=== PATIENT | female | born 1940 | race Caucasian/White ===

== ENCOUNTER 2016-10-18 14:29 | Inpatient (IN) | payer MEDICARE, BC ==
[~2016-10-18] VITALS: Ht 152.4 cm; Wt 64.5 kg
[2016-10-18 16:09] LABS: BASOPHILS 0.2 % (0.0-2.0); EOSINOPHILS 5.7 % (0-7); HEMATOCRIT 38.7 % (36.0-48.0); HEMOGLOBIN 13.2 g/dL (12-16); IMMATURE GRANULOCYTES 0.5 % (0-5); LYMPHOCYTES 6.1 % (15-50); MCH 30.6 pg (26.0-34.0); MCHC 34.1 g/dL (31.0-37.0); MCV 89.8 fL (80.0-100.0); MEAN PLATELET VOLUME 10.9 fL (7.4-10.4); MONOCYTES 5.3 % (2-11); NEUTROPHILS 82.2 % (40-80); PLATELET COUNT 337 10x3/uL (130-400); RBC 4.31 10x6/uL (4.00-5.40)
[2016-10-18 16:14] LABS: APTT 24.2 SECONDS (22.8-39.4); INR 0.98 (0.85-1.17); PROTIME 12.8 SECONDS (11.6-15.0)
[2016-10-18 16:24] LABS: ALBUMIN 3.2 g/dL (3.4-5.0); ANION GAP 16.5 mmol/L (8-16); BILIRUBIN - TOTAL 0.57 mg/dL (0.2-1.3); CALCIUM 8.9 mg/dL (8.5-10.1); CARBON DIOXIDE 23.6 mmol/L (21.0-32.0); CREATININE - SERUM 2.8 mg/dL (0.6-1.3); POTASSIUM - SERUM 4.1 mmol/L (3.5-5.1); PROTEIN - SERUM 6.4 g/dL (6.4-8.2)
[2016-10-18 18:53] LABS: APPEARANCE CLEAR (CLEAR); SPECIFIC GRAVITY 1.015 (1.005-1.020)
[2016-10-18 18:54] LABS: COLOR ORANGE (YELLOW)
[2016-10-18 19:09] LABS: WHITE CELLS - URINE OCC /hpf (0-5)
[2016-10-18 20:12] LABS: MAGNESIUM - SERUM 2.4 mg/dL (1.8-2.4)
--- NOTE | 2016-10-18 23:00 | NUR ---
PATIENT RECEIVED TO ROOM FROM ER VIA STRETCHER WITH DAUGHTER AND HOSPITAL STAFF. PATIENT IS AWAKE AND ORIENTED BUT VERY LETHARGIC. RR EVEN AND UNLABORED. 0 S/S OF DISTRESS. STATES PAIN IS A 5/10 DUE TO CHRONIC PAIN IN BACK, HIPS, AND KNEES. IV TO LEFT HAND PATENT WITH NO REDNESS OR SWELLING. INITIATED NS @ 100ML/HR PER ORDER. PUT TELEMETRY ON PATIENT. ORIENTED PATIENT TO ROOM AND CALL LIGHT. NO OTHER NEEDS AT THIS TIME.
[2016-10-18 23:01] VITALS: BP 144/64; BMI 28.1
[2016-10-19] VITALS: BP 144/64
[2016-10-19] MEDS ORDERED: CYCLOBENZAPRINE10 MG PO (00:57)
[2016-10-19] MEDS ORDERED: PHENERGAN25 M1 PO (01:00)
[2016-10-19] MEDS ORDERED: TRIAMTERENE-HCT1 TA1 PO (01:03)
[2016-10-19] MEDS ORDERED: NITROSTAT0.6 MG SL (01:05)
[2016-10-19] MEDS ORDERED: PHENAZOPYRIDIN200 MG PO (01:06)
[2016-10-19] MEDS ORDERED: ULTRAM50 MG PO (01:06)
[2016-10-19] MEDS ORDERED: NORVASC10 MG PO (01:07)
[2016-10-19] MEDS ORDERED: LONITEN2.5 MG PO (01:07)
[2016-10-19] MEDS ORDERED: METOPROLOL TAR100 M1 PO (01:07)
[2016-10-19] MEDS ORDERED: FENOFIBRATE160 MG PO (01:08)
[2016-10-19] MEDS ORDERED: NITRO-DUR0.4 MG TRANSDERM (01:08)
[2016-10-19] MEDS ORDERED: BAYER CHEWABLE81 MG PO (01:09)
[2016-10-19] MEDS ORDERED: MAXZIDE 75/501 TAB PO (01:10)
[2016-10-19 04:00] VITALS: BP 117/60
--- NOTE | 2016-10-19 04:00 | NUR ---
ASSISTED PATIENT TO BSC AND BACK TO BED. PATIENT STILL VERY WEAK BUT STATES SHE "MIGHT FEEL A LITTLE BIT BETTER THAN EARLIER." NO OTHER NEEDS AT THIS TIME.
[2016-10-19 06:45] LABS: CALCIUM 8.7 mg/dL (8.5-10.1); CARBON DIOXIDE 21.2 mmol/L (21.0-32.0); CREATININE - SERUM 2.3 mg/dL (0.6-1.3); POTASSIUM - SERUM 4.2 mmol/L (3.5-5.1)
[2016-10-19 07:58] VITALS: BP 146/55
--- NOTE | 2016-10-19 08:00 | NUR ---
PT ASSESSMENT COMPLETE PER FLOWSHEET AWAKE AND ALERT ORIENTED X 3 LUNGS CLAER WITH NOTED DIMINISHED BASE LEFT LL HAS RASH TO BODY FROM SYSTEMIC REACTION TO CIPRO. FAMILY AT BEDSIDE.
[2016-10-19 09:38] LABS: HEMOGLOBIN 12.4 g/dL (12-16); MCH 30.6 pg (26.0-34.0); MCHC 33.5 g/dL (31.0-37.0); MCV 91.4 fL (80.0-100.0); MEAN PLATELET VOLUME 10.7 fL (7.4-10.4); PLATELET COUNT 308 10x3/uL (130-400); RBC 4.05 10x6/uL (4.00-5.40); RDW 13.3 % (11.5-14.5)
[2016-10-19 09:46] LABS: ANION GAP 21.6 mmol/L (8-16); BILIRUBIN - TOTAL 0.47 mg/dL (0.2-1.3); CALCIUM 8.6 mg/dL (8.5-10.1); CARBON DIOXIDE 18.6 mmol/L (21.0-32.0); CREATININE - SERUM 2.4 mg/dL (0.6-1.3); POTASSIUM - SERUM 4.2 mmol/L (3.5-5.1); PROTEIN - SERUM 6.1 g/dL (6.4-8.2)
[2016-10-19 10:11] LABS: EOSINOPHILS 4 % (0-7); LYMPHOCYTES 3 % (15-50); MONOCYTES 6 % (2-11); NEUTROPHILS 82 % (40-80); PLATELET ESTIMATE NORMAL; ROULEAUX OCC
[2016-10-19 11:18] LABS: HEMOGLOBIN A1C 5.8 % (4.8-6.0)
[2016-10-19 11:39] VITALS: BP 150/57
[2016-10-19 12:56] VITALS: Ht 152.4 cm; Wt 64.5 kg
--- NOTE | 2016-10-19 13:00 | NUR ---
PT REQUESTED AND RECIEVED BENADRYL FOR ITCHING PT RESTING QUIETLY AT THIS TIME FAMILY AT BEDSIDE.
--- NOTE | 2016-10-19 13:41 | NUR ---
Patient Name: SANDRA MORIN Admission Status: ER Accout number: [id number] Admission Date: 10-18-2016 : 1940 Admission Diagnosis: Attending: CURLY Current LOS: 1 Anticipated DC Date: Planned Disposition: Primary Insurance: MEDICARE A & B Discharge Planning Comments: CM MET WITH PATIENT REGARDING DISCHARGE NEEDS AND PLANS. PATIENT STATED SHE LIVES WITH HER SPOUSE BUT HE IS WITH HIS SON RIGHT NOW. PATIENT HAS A RAMP TO ENTER HOME AND NO STAIRS INSIDE. PATIENT STATED SHE IS INDEPENDENT WITH HER CARE AND HAS A WALKER, WHEELCHAIR, AND SHOWER CHAIR AT HOME IF NEEDED. PATIENTS PCP IS DR. HICKMAN IN [facility] AND SHE USES [facility]. PATIENT HAS NEVER HAD HOME HEALTH AND DOES NOT THINK SHE WILL NEED IT. CM WILL CONTINUE TO FOLLOW PATIENT WITH D/C NEEDS AND PLANS. PCP DR. HICKMAN ([facility]) [facility]- [phone] JARETH (SON) [phone] MAX (DAUGHTER) [phone] House Wrecker: Fartun Fierro Is the patient Alert and Oriented? Yes 0 * How many steps to enter\exit or inside your home? RAMP 0 * PCP DR. HICKMAN ([facility]) 0 * Pharmacy [facility] 0 * Preadmission Environment Home with Family 0 * ADLs Independent 0 * Equipment Shower Chair Walker Wheelchair 0 * List name and contact numbers for known caregivers / representatives who currently or will assist patient after discharge: JARETH (SON) [phone] MAX (DAUGHTER) [phone] 0 * Community resources currently utilized None 0 * Additional services required to return to the preadmission environment? Yes 0 * Can the patient safely return to the preadmission environment? Yes 0 * Has this patient been hospitalized within the prior 30 days at any hospital? No 0 Grand Total: 0
--- NOTE | 2016-10-19 15:00 | NUR ---
DENIES NEEDS AT THIS TIME. RESPIRATIONS EVEN AND NON LABORED. CALL LIGHT IN REACH, WILL CONTINUE WITH PLAN OF CARE.
[2016-10-19 15:45] VITALS: BP 142/61
--- NOTE | 2016-10-19 17:30 | NUR ---
PT EATING DINNER MEAL STATES PAIN LEVEL 6 WILL TREAT PER ORDER WITH DEMEROL AND EVALUATE EFFECTIVNESS
--- NOTE | 2016-10-19 19:37 | NUR ---
INTRODUCED AND ASSESSED AT THIS TIME
[2016-10-19 20:00] VITALS: BP 106/59
--- NOTE | 2016-10-19 22:31 | NUR ---
ALL MEDS TAKEN AT THIS TIME. HAS BEEN UP TO THE BATHROOM TO VOID. FAMILY REMAINS AT THE BEDSIDE. TOOK BENADRYL FOR ITCHING RASH WHICH SHE HAS ALL OVER. NO PROBLEM TAKING ORAL MEDS. HAS SCD'S IN PLACE AND RUNNING AT THIS TIME.
[2016-10-20] VITALS: BP 103/50
[2016-10-20 04:00] VITALS: BP 112/59
[2016-10-20 04:58] LABS: BASOPHILS 0.1 % (0.0-2.0); EOSINOPHILS 7.1 % (0-7); HEMATOCRIT 30.6 % (36.0-48.0); HEMOGLOBIN 10.3 g/dL (12-16); IMMATURE GRANULOCYTES 0.5 % (0-5); LYMPHOCYTES 9.7 % (15-50); MCH 30.3 pg (26.0-34.0); MCHC 33.7 g/dL (31.0-37.0); MEAN PLATELET VOLUME 9.6 fL (7.4-10.4); MONOCYTES 6.8 % (2-11); NEUTROPHILS 75.8 % (40-80); PLATELET COUNT 279 10x3/uL (130-400); RDW 13.3 % (11.5-14.5); WBC 15.7 10x3/uL (4.8-10.8)
[2016-10-20 05:21] LABS: ANION GAP 14.2 mmol/L (8-16); CALCIUM 8.2 mg/dL (8.5-10.1); CARBON DIOXIDE 22.4 mmol/L (21.0-32.0); MAGNESIUM - SERUM 1.8 mg/dL (1.8-2.4); PHOSPHOROUS 2.8 mg/dL (2.5-4.9); POTASSIUM - SERUM 3.6 mmol/L (3.5-5.1)
[2016-10-20 05:22] LABS: CREATININE - SERUM 1.5 mg/dL (0.6-1.3)
--- NOTE | 2016-10-20 07:55 | NUR ---
Patient is awake and alert and she is pleasant. Patient says she is not hungry, she is oriented x3, daughter in her room, c/o feeling weak. denies needs at this time.
[2016-10-20 08:13] VITALS: BP 110/53
[2016-10-20 12:43] VITALS: BP 117/68
--- NOTE | 2016-10-20 14:40 | NUR ---
iv ACCESS-22 GAUGE IN LEFT FOREARM. LINDA ROBERTSON RN
[2016-10-20 15:50] VITALS: BP 120/101
[2016-10-20 21:03] VITALS: BP 144/53
--- NOTE | 2016-10-20 23:20 | NUR ---
PT WAS ASSESSED AT THE BEGINNING OF THE SHIFT. SHE IS ALERT AND ORIENTED, ABLE TO VERBALIZE NEEDS. SHE CONTINURES TO HAVE A RASH ALL OVER HER BODY BUT IS LOOKING LESS RED AND ANGRY. BENADRYL WAS GIVEN FOR THIS AND TO HELP HER REST. SHE IS ABLE TO TURN AND MOVE IN THE BED BUT NEEDS A LOT OF ASSIST UP TO THE BATHROOM DURING THE NIGHT. HER DAUGHTER IS IN THE ROOM WITH HER AND IS HELPING QUITE A BIT. THE BED IS LOW, RAILS UP X'S 2 WITH THE CALL LIGHT AT HAND.
[2016-10-21 01:17] VITALS: BP 109/52
[2016-10-21 04:00] VITALS: BP 139/49
[2016-10-21 05:23] LABS: BASOPHILS 0.2 % (0.0-2.0); EOSINOPHILS 9.2 % (0-7); HEMATOCRIT 29.1 % (36.0-48.0); HEMOGLOBIN 9.8 g/dL (12-16); IMMATURE GRANULOCYTES 1.2 % (0-5); LYMPHOCYTES 14.6 % (15-50); MCH 30.2 pg (26.0-34.0); MCHC 33.7 g/dL (31.0-37.0); MCV 89.8 fL (80.0-100.0); MEAN PLATELET VOLUME 9.4 fL (7.4-10.4); MONOCYTES 7.2 % (2-11); NEUTROPHILS 67.6 % (40-80); PLATELET COUNT 258 10x3/uL (130-400); RBC 3.24 10x6/uL (4.00-5.40); RDW 13.4 % (11.5-14.5); WBC 12.7 10x3/uL (4.8-10.8)
[2016-10-21 05:52] LABS: ALBUMIN 2.6 g/dL (3.4-5.0); ANION GAP 14.3 mmol/L (8-16); BILIRUBIN - TOTAL 0.43 mg/dL (0.2-1.3); CALCIUM 8.3 mg/dL (8.5-10.1); CARBON DIOXIDE 22.7 mmol/L (21.0-32.0); CREATININE - SERUM 1.2 mg/dL (0.6-1.3); PROTEIN - SERUM 5.8 g/dL (6.4-8.2)
--- NOTE | 2016-10-21 07:00 | NUR ---
PT REC'D FROM TRISTIN BECK. RESTING IN BED WITH DAUGHTER IN ROOM. AAOX4. NO COMPLAINTS OF PAIN. REGULAR HEART RATE AND RHYTHM. LUNG SOUNDS CLEAR AND EQUAL BILAT. BOWEL SOUNDS ACTIVE X4 QUADRANTS. RASH THROUGHOUT BODY. PT STATES THAT IT IS GETTING BETTER. NO COMPLAINTS OF ITCHING. BED LOW, CALL LIGHT IN REACH, DENIES NEEDS, CPOC.
--- NOTE | 2016-10-21 08:03 | NUR ---
PATIENT ALERT IN HIGH SCHULER POSITION EATING BREAKFAST. TOLERATING WELL. SIDE RAILS UP X2. BED IN LOW POSITION. CALL LIGHT IN REACH.
[2016-10-21 08:24] VITALS: BP 149/61
--- NOTE | 2016-10-21 10:30 | NUR ---
MORNING MEDS PASSED AT THIS TIME. PT RESTING IN BED WITH SON IN ROOM. BATH AND LINEN CHANGED PROVIDED BY OFELIA PATEL.
--- NOTE | 2016-10-21 12:00 | NUR ---
UP WALKING WITH PHYSICAL THERAPY. AMBULATED WITH MINIMAL ASSISTANCE APPROXIMATELY 150FEET.
[2016-10-21 12:42] VITALS: BP 124/46
--- NOTE | 2016-10-21 14:10 | NUR ---
PRN DEMEROL ADMINISTERED PER PT COMPLAINTS OF 8/10 BACK PAIN. WILL MONITOR AND REASSESS.
--- NOTE | 2016-10-21 15:20 | NUR ---
PT RESTING IN BED WITH VISITORS IN ROOM. STATES PAIN IS GETTING BETTER. 02/10. SALINE LOCKED IV. BED LOW, CALL LIGHT IN REACH, DENIES NEEDS, CPOC.
[2016-10-21 18:39] VITALS: BP 115/58
[2016-10-21 20:49] VITALS: BP 141/59
--- NOTE | 2016-10-21 23:12 | NUR ---
ASSESSED AT THE BEGINNING OF THE SHIFT. DAUGHTER HAS REMAINED IN THE ROOM EVERY NIGHT. PT IS ALERT AND ORIENTED, ABLE TO VERBALIZE NEEDS. PT STATES SHE IS GETTING A LITTLE STRONGER WHICH WAS NOTED ON ASSIST TO THE BATHROOM. SHE REQUESTS VERY LITTLE AND HER DAUGHTER HELPS HER TO THE BATHROOM MOST OF THE TIME. THE BED IS LOW, RAILS UP X'S 2 WITH THE CALL LIGHT AT HAND.
[2016-10-22] VITALS: BP 125/61
[2016-10-22 04:00] VITALS: BP 111/48
[2016-10-22 05:43] LABS: BASOPHILS 0.2 % (0.0-2.0); EOSINOPHILS 0.2 % (0-7); HEMATOCRIT 27.1 % (36.0-48.0); HEMOGLOBIN 9.1 g/dL (12-16); IMMATURE GRANULOCYTES 2.3 % (0-5); LYMPHOCYTES 11.1 % (15-50); MCH 30.2 pg (26.0-34.0); MCHC 33.6 g/dL (31.0-37.0); MEAN PLATELET VOLUME 9.5 fL (7.4-10.4); MONOCYTES 5.4 % (2-11); NEUTROPHILS 80.8 % (40-80); PLATELET COUNT 272 10x3/uL (130-400); RBC 3.01 10x6/uL (4.00-5.40); RDW 13.5 % (11.5-14.5); WBC 12.3 10x3/uL (4.8-10.8)
[2016-10-22 05:59] LABS: ALBUMIN 2.8 g/dL (3.4-5.0); ANION GAP 13.6 mmol/L (8-16); BILIRUBIN - TOTAL 0.42 mg/dL (0.2-1.3); CALCIUM 8.5 mg/dL (8.5-10.1); CARBON DIOXIDE 24.1 mmol/L (21.0-32.0); CREATININE - SERUM 1.3 mg/dL (0.6-1.3)
[2016-10-22 06:00] LABS: POTASSIUM - SERUM 3.7 mmol/L (3.5-5.1)
--- NOTE | 2016-10-22 07:00 | NUR ---
PT REC'D FROM TRISTIN BECK. RESTING IN BED WITH DAUGHTER IN ROOM. VERY PLEASENT THIS. AAOX4. NO COMPLAINTS OF PAIN. BED LOW, CALL LIGHT IN REACH, DENIES NEEDS, CPOC.
[2016-10-22 08:07] VITALS: BP 135/60
--- NOTE | 2016-10-22 09:21 | NUR ---
PT RESTING IN BED VISITING WITH FAMILY, PT MEDS GIVEN PER NOV, NO CURRENT COMPLAINTS, WHEAT GROWER GETTING PT IN SHOWER, IV IN LEFT WRIST LEAKING, TAKEN IV OUT, PT ASSESSMENT COMPLETE, CALL LIGHT IN REACH, BED LOWEST POSITION, WILL CONTINUE PLAN OF CARE
--- NOTE | 2016-10-22 09:40 | NUR ---
PATIENT UP TO SHOWER WITH ASSIST FROM NICHELLE, NURSE AID. FAMILY PRESENT.
--- NOTE | 2016-10-22 10:15 | NUR ---
PT UP AMBULATING AROUND NURSES STATION WITH PHYSICAL THERAPY. UPDATED BY CECILIO PHYSICAL THERAPIST, THAT PT DID WELL WITH MINIMAL ASSISTANCE AND THAT HE FEELS COMFORTABLE CLEARING HER.
--- NOTE | 2016-10-22 11:24 | NUR ---
PT RESTING IN BED SITTING WITH FAMILY, NO COMPLAINTS NOTED, CALL LIGHT IN REACH, BED LOWEST POSITION, WILL CONTINUE PLAN OF CARE
[2016-10-22 12:03] VITALS: BP 140/60
[2016-10-22 16:07] VITALS: BP 139/63
--- NOTE | 2016-10-22 16:50 | NUR ---
PT RESTING IN BED VISITING WITH FAMILY, MED GIVEN PER MAR, BED LOWEST POSITION, CALL LIGHT IN REACH, NO COMPLAINTS, ELSIE CONTINUE PLAN OF CARE
--- NOTE | 2016-10-22 18:31 | NUR ---
PT RESTING IN BED WITH DAUGHTER IN ROOM. NO COMPLAINTS OF PAIN. BED LOW, CALL LIGHT IN REACH, DENIES NEEDS, CPOC.
--- NOTE | 2016-10-22 20:00 | NUR ---
ASSESSMENT PER FLOWSHEET. TELM. SHOWS ST WITH HR 102. AWAKE ALERT ORIENTED X3. FAMILY MEMBER AT BEDSIDE.
--- NOTE | 2016-10-22 21:00 | NUR ---
MEDS GIVEN PER MAR. DENIES NEEDS.
[2016-10-22 21:43] VITALS: BP 109/58
--- NOTE | 2016-10-23 00:28 | NUR ---
RESTING QUIETLY RESPIRATIONS WITH EASE AND UNLABORED.
[2016-10-23 05:00] VITALS: BP 140/71
[2016-10-23 05:38] LABS: BASOPHILS 0.7 % (0.0-2.0); EOSINOPHILS 8.9 % (0-7); HEMATOCRIT 29.7 % (36.0-48.0); HEMOGLOBIN 9.9 g/dL (12-16); IMMATURE GRANULOCYTES 2.1 % (0-5); LYMPHOCYTES 19.1 % (15-50); MCH 30.3 pg (26.0-34.0); MCHC 33.3 g/dL (31.0-37.0); MCV 90.8 fL (80.0-100.0); MEAN PLATELET VOLUME 9.2 fL (7.4-10.4); MONOCYTES 8.6 % (2-11); NEUTROPHILS 60.6 % (40-80); PLATELET COUNT 292 10x3/uL (130-400); RBC 3.27 10x6/uL (4.00-5.40); RDW 13.7 % (11.5-14.5); WBC 12.8 10x3/uL (4.8-10.8)
[2016-10-23 06:04] LABS: % SATURATION 27 % (15-55); IRON 85 ug/dl (35-150); TOTAL IRON BIND CAPACITY 308 ug/dl (260-445); UNSAT IRON BIND CAPACITY 223 ug/dl (150-375)
[2016-10-23 06:16] LABS: ALBUMIN 2.9 g/dL (3.4-5.0); ANION GAP 14.9 mmol/L (8-16); BILIRUBIN - TOTAL 0.45 mg/dL (0.2-1.3); CALCIUM 8.4 mg/dL (8.5-10.1); CARBON DIOXIDE 26.7 mmol/L (21.0-32.0); CREATININE - SERUM 1.2 mg/dL (0.6-1.3); POTASSIUM - SERUM 3.6 mmol/L (3.5-5.1); PROTEIN - SERUM 5.9 g/dL (6.4-8.2)
--- NOTE | 2016-10-23 06:44 | NUR ---
PATIENT UP WALKING TO BR VOIDS. NOW SITTING ON SIDE OF BED. TELM. PHONES SF=[id number]. INSTRUCTED PATIENT TO LAY DOWN FOR A WHILE PT DENIES ANY CHEST PAIN OR SHORTNESS OF BREATH.
--- NOTE | 2016-10-23 06:48 | NUR ---
HEART RATE SLOWING DOWN NOW RATE 141 PER FITTER WELDER.
[2016-10-23 08:34] VITALS: BP 150/82
--- NOTE | 2016-10-23 08:42 | NUR ---
MONITOR CALLED WITH RATE OF 155 UNCAF. VS 150/82. NO COMPLAINTS VOICED. DR HUITRON NOTIFIED. CARDIOLOGY CONSULTED. WILL MOVE TO PCU AFTER IV RESITED AND CARDIZEM DRIP TO BE STARTED. REPORT CALLED TO MEGAN CROW
--- NOTE | 2016-10-23 08:48 | NUR ---
IV ACCESS-20 GAUGE INSERTED IN LEFT HAND X 1 ATTEMPT. LINDA ROBERTSON RN
--- NOTE | 2016-10-23 09:00 | NUR ---
RECEIVED PT VIA BED FROM 2203 TO ROOM 2118 IN UCAF RATE SUSTAINED AT 155 PT IS AAOX4 DENIES ANY SOB B/P 152/
--- NOTE | 2016-10-23 09:06 | NUR ---
CARDIZEM GTT STARTED AT 5 ML/HR PER ORDER TO LT HAND PT TOLERATED WELL
[2016-10-23 11:10] VITALS: BP 152/80
--- NOTE | 2016-10-23 14:08 | NUR ---
Patient Name: SANDRA MORIN Encounter No: [id number] : 1940 Primary Insurance: MEDICARE A & B Anticipated DC Date: 10-20-2016 Planned Disposition: Home WITH HOME HEALTH External Planned Provider: [facility] DCP follow-up note: CM RECEIVED REQUEST TO SPEAK TO PT AND DAUGHTER IN ROOM. PT REPORTS PLAN TO RETURN HOME AND HAS DECIDED THAT SHE WOULD LIKE HOME HEALTH FOR HOME FOLLOW UP AFTER DISCHARGE. PT SIGNED CHOICE FOR [facility]. PCP: DR. HICKMAN DISCHARGE ADDRESS: [address] [place] [address] [place], [place]. PHONE: [phone] OR [phone] CM TO ARRANGE HOME HEALTH WITH [facility] WITH PHYSICIAN AGREEMENT AND ORDERS. Trace Hare, CASE MANAGEMENT
[2016-10-23 16:27] VITALS: BP 125/66
--- NOTE | 2016-10-23 19:35 | NUR ---
ASSESSMENT COMPLETE, A&O, IV TO LEFT HAND WITH CARDIZEM INFUSING AT 5 CC/HR, SITE CLEAN AND DRY. PT DENIES PAIN OR NEEDS, BED LOW, CL IN REACH. WILL CONT TO MONITOR.
[2016-10-23 20:00] VITALS: BP 146/66
--- NOTE | 2016-10-23 21:40 | NUR ---
HS MEDS GIVEN WITH FRESH ICE WATER. ULTRAM 2 TABS GIVEN FOR C/O PAIN. WILL CONT TO MONITOR.
[2016-10-24] VITALS: BP 155/69
--- NOTE | 2016-10-24 00:30 | NUR ---
WHEELCHAIR VAN DRIVER AT BEDSIDE FOR VS. NEEDS ADDRESSED. CALL LIGHT IN REACH. WILL CONT TO MONITOR.
[2016-10-24 04:00] VITALS: BP 129/71
[2016-10-24 05:36] LABS: BASOPHILS 0.7 % (0.0-2.0); EOSINOPHILS 9.5 % (0-7); HEMATOCRIT 31.8 % (36.0-48.0); IMMATURE GRANULOCYTES 2.2 % (0-5); LYMPHOCYTES 19.8 % (15-50); MCH 31.4 pg (26.0-34.0); MCHC 34.6 g/dL (31.0-37.0); MCV 90.9 fL (80.0-100.0); MEAN PLATELET VOLUME 9.2 fL (7.4-10.4); MONOCYTES 9.5 % (2-11); NEUTROPHILS 58.3 % (40-80); PLATELET COUNT 301 10x3/uL (130-400); RDW 13.5 % (11.5-14.5); WBC 13.5 10x3/uL (4.8-10.8)
[2016-10-24 06:10] LABS: ALBUMIN 2.8 g/dL (3.4-5.0); ANION GAP 14.4 mmol/L (8-16); BILIRUBIN - TOTAL 0.45 mg/dL (0.2-1.3); CALCIUM 8.5 mg/dL (8.5-10.1); CARBON DIOXIDE 26.8 mmol/L (21.0-32.0); CREATININE - SERUM 1.2 mg/dL (0.6-1.3); POTASSIUM - SERUM 3.2 mmol/L (3.5-5.1); PROTEIN - SERUM 6.2 g/dL (6.4-8.2)
--- NOTE | 2016-10-24 07:15 | NUR ---
RECEIVED PT IN BED EYES CLOSED RESP UNLABORED NAD NOTED
--- NOTE | 2016-10-24 07:44 | NUR ---
ZOFRAN 4 MG GIVEN SIVP FOR C/O NAUSEA
[2016-10-24 07:53] VITALS: BP 146/78
[2016-10-24 11:44] VITALS: BP 109/54
--- NOTE | 2016-10-24 14:03 | NUR ---
Nutrition follow-up: Diet: Low sodium PO intake ~60% of meals-pt with some nausea at this time labs reviewed +BM Wt: 143# PO intake fair to good at most meals RDN following.
[2016-10-24 15:24] VITALS: BP 113/54
--- NOTE | 2016-10-24 19:15 | NUR ---
INITIAL ROUNDS MADE. PT SITTING UP INBED WATCHING TV. DENIES NEEDS OR C/O AT THIS TIME. GIVEN CHERYL INFANTE BY REQUEST, WILL CONT TO MONITOR.
[2016-10-24 20:00] VITALS: BP 122/52
[2016-10-25] VITALS: BP 111/60
--- NOTE | 2016-10-25 00:20 | NUR ---
FIBER OPTIC ASSEMBLER AT BEDSIDE FOR VS, NEEDS ADDRESSED. CALL LIGHT IN REACH. WILL CONT TO MONITOR.
[2016-10-25 04:00] VITALS: BP 152/62
--- NOTE | 2016-10-25 05:12 | NUR ---
RESTING WELL WITH EYES CLOSED, CONT TO MONITOR.
[2016-10-25 05:54] LABS: BASOPHILS 1.2 % (0.0-2.0); EOSINOPHILS 5.9 % (0-7); HEMATOCRIT 32.7 % (36.0-48.0); HEMOGLOBIN 10.8 g/dL (12-16); IMMATURE GRANULOCYTES 2.3 % (0-5); LYMPHOCYTES 21.5 % (15-50); MCH 30.3 pg (26.0-34.0); MCV 91.6 fL (80.0-100.0); MEAN PLATELET VOLUME 9.5 fL (7.4-10.4); MONOCYTES 9.6 % (2-11); NEUTROPHILS 59.5 % (40-80); PLATELET COUNT 304 10x3/uL (130-400); RBC 3.57 10x6/uL (4.00-5.40); RDW 13.1 % (11.5-14.5); WBC 10.7 10x3/uL (4.8-10.8)
[2016-10-25 06:14] LABS: ALBUMIN 2.8 g/dL (3.4-5.0); BILIRUBIN - TOTAL 0.47 mg/dL (0.2-1.3); CALCIUM 8.7 mg/dL (8.5-10.1); CARBON DIOXIDE 29.1 mmol/L (21.0-32.0); CREATININE - SERUM 1.4 mg/dL (0.6-1.3); POTASSIUM - SERUM 4.1 mmol/L (3.5-5.1); PROTEIN - SERUM 6.3 g/dL (6.4-8.2)
[2016-10-25 08:31] VITALS: BP 142/65
--- NOTE | 2016-10-25 09:35 | NUR ---
TELEMETRY SR. DAUGHTER AT BS. CALL LIGHT IN REACH. WILL CONT. PLAN OF CARE.
--- NOTE | 2016-10-25 10:06 | NUR ---
AMBULATES 350 FEET WITH PT ASSIST.
[2016-10-25 12:00] VITALS: BP 131/65
[2016-10-25] MEDS ORDERED: BETAPACE 80 MG80 MG PO (12:19)
[2016-10-25] MEDS ORDERED: VIBRAMYCIN 100100 MG PO (12:22)
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
--- NOTE | 2016-10-25 15:49 | NUR ---
IV AND TELEMETRY DCD. DC PLANS GIVEN. UNDERSTANDING VOICED. ESCORTED TO CAR BY W/C.
--- NOTE | 2016-10-27 08:47 | EC ---
PATIENT:SANDRA MORIN DATE OF SERVICE: 10/19/16 SEX: F MEDICAL RECORD: [id number] DATE OF : [birth year] LOCATION:D. D.211 AGE OF PATIENT: 76 ADMISSION DATE: 10/19/16 REFERRING PHYSICIAN: INTERPRETING PHYSICIAN: ANGELINE FITZGERALD MD ECHOCARDIOGRAM REPORT ECHO CHARGES 4 ECHO COMPLETE CLINICAL DIAGNOSIS: A-FIB ECHOCARDIOGRAPHIC MEASUREMENTS (adult normal given) AC root (d.<3.7cm) 3.2 LV Septum d (<1.2 cm> 1.5 Valve Excursion 1.8 LV Septum (systole) 2.3 Left Atria (s.<4.0cm> 4.3 LVPW d(<1.2cm) 1.4 RV (d.<2.3cm) 2.2 LVPW (sytole) 1.9 LV diastole(<5.6CM) 4.7 MV E-F(>70mm/sec) LV systole 2.2 LVOT Diameter 1.6 MV exc.(>10mm) Est.ejection fraction (50-75%) Pericardial Effusion N DOPPLER: LVIT A 62.0 E 111 LA RVSP 58.3 LVOT 135 AOP1/2T Asc. Ao 200 RVOT 88.0 RA PA 116 AV Gradient Peak 16.0 AV Mean 7.3 AV Area 1.7 MV Gradient Peak 7.9 MV Mean 2.4 MV Area COMMENTS: Straightening Machine Operator: Alana SANCHEZOE Earthmoving Labourer:1 Dr. Fitzgerald TAPE# PACS DATE OF SERVICE: 10/23/2016 Echocardiogram FINDINGS: 1. Left ventricular chamber size is within normal limits. Left ventricular systolic function is normal. Overall ejection fraction estimated at 60%. 2. Left atrium is enlarged at 4.3 cm. Right atrium and right ventricular chamber sizes are as well mildly dilated. 3. Valvular structures have normal structure and motion. ECHOCARDIOGRAM REPORT [id number] SANDRA MORIN 4. Doppler interrogation reveals moderate aortic insufficiency, [id number] mitral regurgitation, moderate tricuspid regurgitation, no other valvular insufficiency or stenosis. Pulmonary systolic pressure is estimated 58 mmHg. 5. No evidence of pericardial effusion or left ventricular thrombus. TRANSINT:[id number] Voice Confirmation ID: [id number] DOCUMENT ID: [id number] ANGELINE FITZGERALD MD at 0847 CC: [id number] DICTATION DATE: 10/23/16 1552 CORPORATE REAL ESTATE SPECIALIST: 10/24/16 0029 DIS IN 10/25/16 [facility] [address] [id number]
--- NOTE | 2016-10-27 08:47 | CN ---
PATIENT NAME:SANDRA MORIN MEDICAL RECORD: [id number] : [birth year] LOCATION:D. D.2119 ADMIT DATE: 10/19/16 ACCOUNT: [id number] CONSULTING PHYSICIAN: ANGELINE YOUNG MD REFERRING PHYSICIAN: BLAYNE HOOKER MD DATE OF CONSULTATION: 10/23/2016 Cardiology Consultation DIAGNOSES: 1. Atrial fibrillation with rapid ventricular response. 2. Febrile illness. 3. Dehydration. 4. Coronary artery disease. 5. Hypertension. HISTORY OF PRESENT ILLNESS: Mrs. Morin presents with febrile illness and dehydration. She was in sinus rhythm; however, this morning, she went out of sinus rhythm with atrial fibrillation with rapid ventricular response. She has no history of atrial fibrillation. She is not having chest pain, chest discomfort, only mild shortness of breath with this heart rate is up to the 120s. She is on metoprolol. No other AV blocking medication. She is on amlodipine for blood pressure. PHYSICAL EXAMINATION: GENERAL APPEARANCE: Well-nourished, well-developed, appears stated age. Level of distress, comfortable. PSYCHIATRIC: Mental status, alert, normal affect. Orientation, oriented to time, place and person. EYES: Lids and conjunctiva, noninjected. No discharge, no pallor. ENT: Lips, teeth, gums, normal dentition. Oropharynx, no cyanosis, no pallor. NECK: Carotid arteries, bilateral normal upstroke, no bruits, no thrills. JUGULAR VEINS: No jugular venous pressure or distention. CERVICAL LYMPH NODES: Nontender, nonenlarged. THYROID: Not enlarged. Nontender. No nodules. LUNGS: Respiratory effort, unlabored. CHEST: Normal curvature. No thoracic deformity. No chest wall tenderness. Percussion, resonant. Auscultation, clear. No wheezes, no rales, no rhonchi. CARDIOVASCULAR: Heart is irregularly, irregular, rapid, in atrial fibrillation. EXTREMITIES: No cyanosis, no edema. Peripheral pulses, full and equal in all extremities, except as noted. No bruits appreciated. ABDOMEN: Soft, nondistended. Normal aorta. No bruit. Nontender. No masses. Liver, nontender, no hepatomegaly. Spleen, nontender, no splenomegaly. MUSCULOSKELETAL: No joint tenderness. No joint swelling. No erythema. NEUROLOGICAL: Normal gait, normal strength, normal tone. SKIN: Warm and dry. OVERALL IMPRESSION: Atrial fibrillation with rapid ventricular response. At this time, we will get an echocardiogram. Also, will get a troponin. We will slow her with diltiazem IV, this converts her to sinus rhythm. We will discontinue her p.o. amlodipine and switching her to p.o. diltiazem. Further care depends upon the remainder of the cardiac workup. TRANSINT:[id number] Voice Confirmation ID: [id number] DOCUMENT ID: [id number] CONSULT REPORT [id number] SANDRA MORIN, ANGELINE GRESHAM at 0847 CC: [id number] DICTATION DATE: 10/23/16 1123 CORDWOOD CUTTER HELPER: 10/23/16 1152 DIS IN 10/25/16 [address] [place] [address]
== END 2016-10-25 15:50 | disposition home or self-care (01) | DRG 690 ==
LOC: D.ER 14:29 → D.MS 20:42 → OBSVTIME 20:42 → D.MS 10-19 17:27 → D.M2 10-19 17:27
PROVIDERS: Emergency Medicine; Family Medicine; Physician Assistant Medical; ADMIT Family Medicine
DX: N10 Acute pyelonephritis (principal); M87.9 Osteonecrosis, unspecified; N17.9 Acute kidney failure, unspecified; E86.0 Dehydration; I10 Essential (primary) hypertension; I25.119 Atherosclerotic heart disease of native coronary artery with unspecified angina pectoris; I48.91 Unspecified atrial fibrillation; M32.9 Systemic lupus erythematosus, unspecified; I72.2 Aneurysm of renal artery; I25.2 Old myocardial infarction